=== PATIENT | male | born 1965 | race Caucasian/White ===

== ENCOUNTER 2018-09-23 09:19 | Inpatient (IN) | payer OTHER ==
[2018-09-23] MEDS: ONDANSETRON 4 MG INJ IV (09:46)
[2018-09-23 09:47] LABS: ADD MAN DIFF? NO
[2018-09-23] MEDS: morphine 4 MG/ML VIAL IV ×2 (09:47→20:07)
[2018-09-23] MEDS: NICARDipine HCL 30 MG CAPSULE PO ×2 (09:47→11:15)
[2018-09-23] MEDS: NITROGLYCERIN 2% 1 GM OINT PKT TD (09:47)
[2018-09-23 09:50] LABS: WHITE BLOOD COUNT 11.4 10^3/ul (4.8-10.8)
[2018-09-23 09:50] LABS: BASOPHILS % 0.2 % (0.0-2.0); EOSINOPHILS % 0.1 % (0.0-7.0); HEMATOCRIT 47.6 % (42.0-52.0); HEMOGLOBIN 16.4 g/dl (14.0-18.0); LYMPHOCYTES # 1.5 10^3/ul (0.8-2.9); LYMPHOCYTES % 13.5 % (15.0-51.0); MEAN CORPUSCULAR HGB CONC 34.5 g/dl (32.0-37.0); MEAN PLATELET VOLUME 8.8 fl (7.4-10.4); MONOCYTE # 0.6 10^3/ul (0.3-0.9); MONOCYTES % 5.1 % (0.0-11.0); NEUTROPHIL # 9.2 10^3/ul (1.6-7.5); NEUTROPHILS % 80.7 % (39.0-77.0); PLATELET COUNT 319 10^3/UL (140-415); RED BLOOD COUNT 5.29 10^6/ul (4.70-6.10); RED CELL DISTRIBUTION WIDTH 12.8 % (11.5-14.5)
[2018-09-23 10:09] LABS: INR 0.94; PROTIME 12.7 Sec (11.9-14.9)
[2018-09-23 10:10] LABS: PARTIAL THROMBOPLASTIN TIME 25.8 Sec (23.0-35.0)
[2018-09-23 10:12] LABS: ANION GAP 14 (5-13); BLOOD UREA NITROGEN 12 mg/dl (7-20); CARBON DIOXIDE 21 mmol/L (21-31); CHLORIDE 105 mmol/L (97-110); CREATININE 1.07 mg/dl (0.61-1.24); Estimated GFR > 60 mL/min (>60); GLUCOSE 130 mg/dl (70-220); POTASSIUM 3.9 mmol/L (3.5-5.1); SODIUM 140 mmol/L (135-144)
[2018-09-23 10:24] LABS: TROPONIN-I < 0.012 ng/ml (0.000-0.120)
[2018-09-23] MEDS: SOD CHLORIDE 0.9% 100 ML ×2 (10:48→15:41)
[2018-09-23] MEDS: IOHEXOL 100 ML (10:48)
[2018-09-23] MEDS: MECLIZINE 12.5 MG TAB PO (11:15)
[2018-09-23] MEDS ORDERED: ONDANSETRON 4 MG INJ IV (11:30)
[2018-09-23] MEDS ORDERED: ACETAMINOPHEN 325 MG TAB PO (11:30)
[2018-09-23] MEDS: LORAZEPAM 2 MG INJ IV ×3 (12:33→22:58)
[2018-09-23] MEDS: SOD CHLORIDE 0.9% 500 ML IV (13:10)
[2018-09-23] MEDS: hydrALAzine 20 MG INJ IV (13:10)
[2018-09-23] MEDS: SOD CHLORIDE 0.9% 1,000 ML IV (14:49)
[2018-09-23] MEDS ORDERED: NACL 0.9% 3 ML SYG IV (15:00)
[2018-09-23] MEDS: IOHEXOL 300MG/ML 150 ML BTL (15:41)
[2018-09-23] MEDS: ACETAMINOPHEN 325 MG TAB PO (15:52)
[2018-09-23] MEDS: IBUPROFEN 800 MG TAB PO (17:36)
[2018-09-23 17:50] LABS: TROPONIN-I < 0.012 ng/ml (0.000-0.120)
[2018-09-23] MEDS ORDERED: NON-FORMULARY/PATIENT OWN MED (Lurasidone Hcl (Latuda) 60 MG) PO (21:00)
[2018-09-23 21:42] LABS: TROPONIN-I < 0.012 ng/ml (0.000-0.120)
[2018-09-23] MEDS: ATORVASTATIN 40 MG TAB PO (22:57)
[2018-09-23] MEDS: traZODone 50 MG TAB PO (22:57)
[2018-09-23] MEDS: FAMOTIDINE 20 MG INJ IV (22:57)
[2018-09-24] MEDS: SOD CHLORIDE 0.9% 1,000 ML IV ×3 (01:09→23:40)
[2018-09-24] MEDS: ONDANSETRON 4 MG INJ IV (02:26)
[2018-09-24] MEDS: morphine 2 MG INJ IV ×3 (02:28→20:41)
[2018-09-24] MEDS: LORAZEPAM 2 MG INJ IV ×3 (05:06→18:04)
[2018-09-24 06:34] LABS: ADD MAN DIFF? NO
[2018-09-24 06:42] LABS: BASOPHILS % 0.4 % (0.0-2.0); EOSINOPHILS # 0.1 10^3/ul (0.0-0.5); EOSINOPHILS % 0.8 % (0.0-7.0); HEMOGLOBIN 14.7 g/dl (14.0-18.0); LYMPHOCYTES # 1.7 10^3/ul (0.8-2.9); LYMPHOCYTES % 17.3 % (15.0-51.0); MEAN CORPUSCULAR HEMOGLOBIN 31.8 pg (29.0-33.0); MEAN CORPUSCULAR HGB CONC 34.2 g/dl (32.0-37.0); MEAN CORPUSCULAR VOLUME 93.1 fl (82.0-101.0); MEAN PLATELET VOLUME 8.8 fl (7.4-10.4); MONOCYTE # 0.8 10^3/ul (0.3-0.9); MONOCYTES % 8.7 % (0.0-11.0); NEUTROPHIL # 6.9 10^3/ul (1.6-7.5); NEUTROPHILS % 72.4 % (39.0-77.0); PLATELET COUNT 267 10^3/UL (140-415); RED BLOOD COUNT 4.62 10^6/ul (4.70-6.10); RED CELL DISTRIBUTION WIDTH 13.2 % (11.5-14.5)
[2018-09-24 06:42] LABS: WHITE BLOOD COUNT 9.5 10^3/ul (4.8-10.8)
[2018-09-24 07:15] LABS: ALANINE AMINOTRANSFERASE 16 IU/L (13-69); ALBUMIN 4.2 g/dl (3.3-4.9); ALBUMIN/GLOBULIN RATIO 1.55; ALKALINE PHOSPHATASE 54 IU/L (42-121); ANION GAP 11 (5-13); ASPARTATE AMINO TRANSFERASE 18 IU/L (15-46); BILIRUBIN,INDIRECT 0.7 mg/dl (0-1.1); BILIRUBIN,TOTAL 0.7 mg/dl (0.2-1.3); BLOOD UREA NITROGEN 9 mg/dl (7-20); CALCIUM 9.1 mg/dl (8.4-10.2); CARBON DIOXIDE 23 mmol/L (21-31); CHLORIDE 106 mmol/L (97-110); CHOL/HDL RATIO 7.3 RATIO; CHOLESTEROL 207 mg/dl (100-200); CREATININE 1.11 mg/dl (0.61-1.24); Estimated GFR > 60 mL/min (>60); GLUCOSE 100 mg/dl (70-220); HDL CHOLESTEROL 28 mg/dl (28-71); LDL CHOLESTEROL,CALCULATED 152 mg/dl; MAGNESIUM 1.8 mg/dl (1.7-2.5); PHOSPHORUS 2.7 mg/dl (2.5-4.9); POTASSIUM 3.6 mmol/L (3.5-5.1); SODIUM 140 mmol/L (135-144); TOTAL PROTEIN 6.9 g/dl (6.1-8.1); TRIGLYCERIDES 137 mg/dl (0-149)
[2018-09-24 07:23] LABS: HEMOGLOBIN A1C 4.9 % (0-5.9)
[2018-09-24] MEDS: ASPIRIN 81 MG TAB PO (08:31)
[2018-09-24] MEDS: LAMOTRIGINE 100 MG TAB PO (08:32)
[2018-09-24] MEDS: FAMOTIDINE 20 MG INJ IV ×2 (08:32→20:39)
[2018-09-24 10:36] LABS: ADD UMIC NO; UR ASCORBIC ACID NEGATIVE (NEGATIVE); UR BILIRUBIN (Dip) NEGATIVE (NEGATIVE); UR BLOOD (Dip) NEGATIVE (NEGATIVE); UR CLARITY CLEAR (CLEAR); UR COLOR YELLOW (YELLOW); UR GLUCOSE (Dip) NEGATIVE (NEGATIVE); UR KETONES (Dip) TRACE mg/dL (NEGATIVE); UR LEUKOCYTE ESTERASE (Dip) NEGATIVE Leu/ul (NEGATIVE); UR NITRITE (Dip) NEGATIVE (NEGATIVE); UR TOTAL PROTEIN (Dip) NEGATIVE (NEGATIVE); UR UROBILINOGEN (Dip) NEGATIVE (NEGATIVE)
[2018-09-24] MEDS: LURASIDONE IS XX ×2 (13:22→21:30)
[2018-09-24] MEDS: traZODone 50 MG TAB PO (20:40)
[2018-09-24] MEDS: ATORVASTATIN 40 MG TAB PO (20:40)
[2018-09-25] MEDS: LURASIDONE IS XX ×2 (04:30→14:28)
[2018-09-25 06:02] LABS: ADD MAN DIFF? NO
[2018-09-25 06:11] LABS: WHITE BLOOD COUNT 7.7 10^3/ul (4.8-10.8)
[2018-09-25 06:11] LABS: BASOPHIL # 0.1 10^3/ul (0.0-0.1); BASOPHILS % 0.9 % (0.0-2.0); EOSINOPHILS # 0.3 10^3/ul (0.0-0.5); EOSINOPHILS % 3.9 % (0.0-7.0); HEMATOCRIT 41.4 % (42.0-52.0); HEMOGLOBIN 13.9 g/dl (14.0-18.0); LYMPHOCYTES # 1.7 10^3/ul (0.8-2.9); LYMPHOCYTES % 22.2 % (15.0-51.0); MEAN CORPUSCULAR HEMOGLOBIN 31.4 pg (29.0-33.0); MEAN CORPUSCULAR HGB CONC 33.6 g/dl (32.0-37.0); MEAN CORPUSCULAR VOLUME 93.5 fl (82.0-101.0); MONOCYTE # 0.7 10^3/ul (0.3-0.9); MONOCYTES % 8.6 % (0.0-11.0); NEUTROPHIL # 4.9 10^3/ul (1.6-7.5); NEUTROPHILS % 64.1 % (39.0-77.0); PLATELET COUNT 257 10^3/UL (140-415); RED BLOOD COUNT 4.43 10^6/ul (4.70-6.10)
[2018-09-25 06:18] LABS: LACTIC ACID 1.1 mmol/L (0.5-2.0)
[2018-09-25] MEDS: LORAZEPAM 2 MG INJ IV ×2 (06:36→18:29)
[2018-09-25 06:38] LABS: INR 1.04; PROTIME 13.7 Sec (11.9-14.9); PT RATIO 1.1
[2018-09-25 07:05] LABS: PHOSPHORUS 3.3 mg/dl (2.5-4.9)
[2018-09-25 07:05] LABS: LIPASE 53 U/L (23-300); MAGNESIUM 1.9 mg/dl (1.7-2.5)
[2018-09-25 07:33] LABS: ALANINE AMINOTRANSFERASE 24 IU/L (13-69); ALBUMIN 3.7 g/dl (3.3-4.9); ALBUMIN/GLOBULIN RATIO 1.37; ALKALINE PHOSPHATASE 42 IU/L (42-121); ANION GAP 8 (5-13); ASPARTATE AMINO TRANSFERASE 18 IU/L (15-46); BILIRUBIN,INDIRECT 0.6 mg/dl (0-1.1); BILIRUBIN,TOTAL 0.6 mg/dl (0.2-1.3); BLOOD UREA NITROGEN 12 mg/dl (7-20); CALCIUM 9.2 mg/dl (8.4-10.2); CARBON DIOXIDE 21 mmol/L (21-31); CHLORIDE 111 mmol/L (97-110); CREATININE 1.22 mg/dl (0.61-1.24); Estimated GFR > 60 mL/min (>60); GLUCOSE 89 mg/dl (70-220); POTASSIUM 4.3 mmol/L (3.5-5.1); SODIUM 140 mmol/L (135-144); TOTAL PROTEIN 6.4 g/dl (6.1-8.1)
[2018-09-25] MEDS: ASPIRIN 81 MG TAB PO (07:44)
[2018-09-25] MEDS: FAMOTIDINE 20 MG INJ IV (07:44)
[2018-09-25] MEDS: LAMOTRIGINE 100 MG TAB PO (07:44)
[2018-09-25] MEDS: SOD CHLORIDE 0.9% 1,000 ML IV (18:29)
[2018-09-25] MEDS: morphine 2 MG INJ IV (20:40)
[2018-09-25] MEDS: ATORVASTATIN 40 MG TAB PO (20:41)
[2018-09-25] MEDS: traZODone 50 MG TAB PO (20:41)
[2018-09-25] MEDS: FAMOTIDINE 20 MG TAB PO (20:41)
[2018-09-26] MEDS: FAMOTIDINE 20 MG TAB PO (08:31)
[2018-09-26] MEDS: ASPIRIN 81 MG TAB PO (08:31)
[2018-09-26] MEDS: LAMOTRIGINE 100 MG TAB PO (08:31)
[2018-09-26] MEDS: LORAZEPAM 2 MG INJ IV (08:32)
[2018-09-26] MEDS: IBUPROFEN 800 MG TAB PO (12:11)
[2018-09-26] MEDS: morphine 2 MG INJ IV (12:40)
== END 2018-09-26 18:07 | disposition home or self-care (01) | DRG 313 ==
LOC: 6WM 11:13 → E/R 09:19
DX: R07.89 Other chest pain (principal); I25.10 Atherosclerotic heart disease of native coronary artery without angina pectoris; I25.2 Old myocardial infarction; R42 Dizziness and giddiness; R11.10 Vomiting, unspecified; R19.7 Diarrhea, unspecified; R19.00 Intra-abdominal and pelvic swelling, mass and lump, unspecified site; G40.909 Epilepsy, unspecified, not intractable, without status epilepticus; I10 Essential (primary) hypertension; Z95.5 Presence of coronary angioplasty implant and graft; F41.1 Generalized anxiety disorder; Z87.891 Personal history of nicotine dependence
CPT/HCPCS: 36415; 70553; 71275; 74177; 80048; 80053; 80061; 81003; 83036; 83605; 83690; 83735; 84100; 84443; 84484; 85025; 85610; 85730; 87086; 93005; 96374; 96375; 99285-25; G0378